=== PATIENT | female | born 1995 | race Caucasian/White ===

== ENCOUNTER 2020-08-12 16:15 | Outpatient (CLI) | payer OTHER ==
[2020-08-27] MEDS ORDERED: HYDROCODON-ACE1 EAC4 PO (20:53)
[2020-08-27] MEDS ORDERED: DOCUSATE SODIU100 MG PO (20:53)
[2020-08-27] MEDS ORDERED: IBUPROFEN800 MG PO (20:53)
== END 2020-08-12 17:50 | disposition home or self-care (01) ==
LOC: GENOP 16:15
DX: O26.93 Pregnancy related conditions, unspecified, third trimester (principal); R10.2 Pelvic and perineal pain; Z3A.36 36 weeks gestation of pregnancy
CPT/HCPCS: 83518; G0463

== ENCOUNTER 2020-08-13 22:40 | Outpatient (CLI) | payer OTHER ==
[2020-08-27] MEDS ORDERED: DOCUSATE SODIU100 MG PO (20:53)
[2020-08-27] MEDS ORDERED: HYDROCODON-ACE1 EAC4 PO (20:53)
[2020-08-27] MEDS ORDERED: IBUPROFEN800 MG PO (20:53)
== END 2020-08-14 01:04 | disposition home or self-care (01) ==
LOC: GENOP 22:40
DX: O62.9 Abnormality of forces of labor, unspecified (principal); Z3A.36 36 weeks gestation of pregnancy
CPT/HCPCS: 59025; 81001

== ENCOUNTER 2020-08-15 17:40 | Outpatient (CLI) | payer OTHER ==
[2020-08-27] MEDS ORDERED: DOCUSATE SODIU100 MG PO (20:53)
[2020-08-27] MEDS ORDERED: IBUPROFEN800 MG PO (20:53)
[2020-08-27] MEDS ORDERED: HYDROCODON-ACE1 EAC4 PO (20:53)
== END 2020-08-15 19:56 | disposition home or self-care (01) ==
LOC: GENOP 17:40
DX: O62.9 Abnormality of forces of labor, unspecified (principal); Z3A.36 36 weeks gestation of pregnancy
CPT/HCPCS: 81001; G0463

== ENCOUNTER 2020-08-27 11:05 | Inpatient (IN) | payer OTHER ==
[~2020-08-27] VITALS: Ht 165.1 cm; Wt 103.9 kg
[2020-08-27] MEDS ORDERED: LEVOTHYROXINE75 MCG PO (14:41)
[2020-08-27] MEDS ORDERED: PRENATABS FA T1 EACH PO (14:44)
[2020-08-27] MEDS ORDERED: MAGNESIUM500 MG PO ×2 (14:44)
[2020-08-27] MEDS ORDERED: PEPCID20 MG PO (14:47)
[2020-08-27] MEDS ORDERED: MONTELUKAST SOD10 MG PO (14:48)
[2020-08-27] MEDS ORDERED: FLUTICASONE-SA1 EAC3 INH (14:48)
[2020-08-27 15:20] LABS: HEMOGLOBIN 14.1 gm/dl (12.3-15.3); RED BLOOD COUNT 4.85 M/UL (4.00-5.10); WHITE BLOOD COUNT 11.3 K/UL (4.5-11.0)
[2020-08-27] MEDS ORDERED: HYDROCODON-ACE1 EAC4 PO (20:53)
[2020-08-27] MEDS ORDERED: DOCUSATE SODIU100 MG PO (20:53)
[2020-08-27] MEDS ORDERED: IBUPROFEN800 MG PO (20:53)
[2020-08-27 23:07] LABS: HEMOGLOBIN 13.3 gm/dl (12.3-15.3)
[2020-08-28 06:33] LABS: HEMOGLOBIN 12.5 gm/dl (12.3-15.3)
== END 2020-08-29 14:59 | disposition home or self-care (01) | DRG 807 ==
LOC: GENOP 11:05 → OB 14:16
PROVIDERS: ADMIT Obstetrics & Gynecology
PROC: 10E0XZZ Delivery of Products of Conception, External Approach (ICD-10-PCS; principal; 2020-08-27)
PROC: 10907ZC Drainage of Amniotic Fluid, Therapeutic from Products of Conception, Via Natural or Artificial Opening (ICD-10-PCS; 2020-08-27)
PROC: 4A1HX4Z Monitoring of Products of Conception, Cardiac Electrical Activity, External Approach (ICD-10-PCS; 2020-08-27)
DX: O99.284 Endocrine, nutritional and metabolic diseases complicating childbirth (principal); Z37.0 Single live birth; E28.2 Polycystic ovarian syndrome; Z3A.38 38 weeks gestation of pregnancy; O70.1 Second degree perineal laceration during delivery; O72.1 Other immediate postpartum hemorrhage; Z20.822 Contact with and (suspected) exposure to COVID-19; Z90.49 Acquired absence of other specified parts of digestive tract; E03.9 Hypothyroidism, unspecified; J45.909 Unspecified asthma, uncomplicated
CPT/HCPCS: 36415; 51702; 81001; 82800; 85014; 85018; 85025; 87635; 90715; J2210; J2405; J2590; J2795; J3010; J7120

== ENCOUNTER 2020-09-02 19:39 | Emergency (ER) | payer OTHER ==
[~2020-09-02] VITALS: Ht 165.1 cm; Wt 98.9 kg
[~2020-09-02 19:39] MED LIST: DOCUSATE SODIU100 MG PO; FLUTICASONE-SA1 EAC3 INH; HYDROCODON-ACE1 EAC4 PO; IBUPROFEN800 MG PO; LEVOTHYROXINE75 MCG PO; MAGNESIUM500 MG PO; MONTELUKAST SOD10 MG PO; PEPCID20 MG PO; PRENATABS FA T1 EACH PO
[2020-09-02 22:01] LABS: HEMOGLOBIN 14.3 gm/dl (12.3-15.3); RED BLOOD COUNT 4.84 M/UL (4.00-5.10); WHITE BLOOD COUNT 9.1 K/UL (4.5-11.0)
[2020-09-02 22:19] LABS: BUN/CREATININE RATIO 14 (0-10)
== END 2020-09-03 03:29 | disposition home or self-care (01) ==
LOC: ER1 19:39
PROVIDERS: Physician Assistant
DX: O72.1 Other immediate postpartum hemorrhage (principal); O99.285 Endocrine, nutritional and metabolic diseases complicating the puerperium; E03.9 Hypothyroidism, unspecified; O99.53 Diseases of the respiratory system complicating the puerperium; J45.909 Unspecified asthma, uncomplicated; Z88.8 Allergy status to other drugs, medicaments and biological substances; Z90.49 Acquired absence of other specified parts of digestive tract; Z79.899 Other long term (current) drug therapy; Z88.0 Allergy status to penicillin
CPT/HCPCS: 80053; 81001; 85025; 96365; 96366; 96367; 96375; 96376; 99284; J1200; J1580; J1885; J2765; J7030; Q9967

== ENCOUNTER → 2021-02-25 | Outpatient (CLI) | payer OTHER | LOC: KOH-I 08:30 | DX: J01.81 Other acute recurrent sinusitis (principal); J32.4 Chronic pansinusitis | CPT/HCPCS: 70486 ==

== ENCOUNTER 2021-04-08 23:08 | Emergency (ER) | payer OTHER | END 2021-04-08 23:48 | disposition home or self-care (01) | LOC: ER1 23:08 | DX: L24.5 Irritant contact dermatitis due to other chemical products (principal) | CPT/HCPCS: 99283 ==

== ENCOUNTER 2021-05-04 13:30 | Emergency (ER) | payer OTHER ==
[2021-05-04 14:36] LABS: HEMOGLOBIN 14.8 gm/dl (12.3-15.3); RED BLOOD COUNT 4.66 M/UL (4.00-5.10); WHITE BLOOD COUNT 6.7 K/UL (4.5-11.0)
[2021-05-04 14:48] LABS: BUN/CREATININE RATIO 16 (0-10)
== END 2021-05-04 16:55 | disposition home or self-care (01) ==
LOC: ER1 13:30
PROVIDERS: Emergency Medicine
DX: R10.30 Lower abdominal pain, unspecified (principal)
CPT/HCPCS: 76830; 80048; 81001; 84703; 85025; 96374; 96375; 99284; J1885; J2405; Q9967

== ENCOUNTER → 2021-06-10 | Outpatient (CLI) | payer OTHER | LOC: RAD 16:09 | DX: M25.551 Pain in right hip (principal) | CPT/HCPCS: 73522 ==

== ENCOUNTER 2021-10-21 14:13 | Emergency (ER) | payer OTHER ==
[2021-10-21] MEDS ORDERED: PEPCID40 MG PO (16:08)
[2021-10-21] MEDS ORDERED: BENADRYL25 MG PO (16:08)
== END 2021-10-21 16:22 | disposition home or self-care (01) ==
LOC: ER1 14:13
DX: L50.1 Idiopathic urticaria (principal); Z88.8 Allergy status to other drugs, medicaments and biological substances
CPT/HCPCS: 96374; 99282; J2930

== ENCOUNTER → 2021-11-27 | Outpatient (CLI) | payer OTHER ==
[~2021-11-27] MED LIST changes: +BENADRYL25 MG PO; +PEPCID40 MG PO
== END ==
LOC: EMI 09:39
DX: G43.909 Migraine, unspecified, not intractable, without status migrainosus (principal)
CPT/HCPCS: 70551

== ENCOUNTER → 2022-02-12 | Outpatient (CLI) | payer OTHER | LOC: KOH-I 01-30 13:30 | DX: E03.9 Hypothyroidism, unspecified (principal); E04.9 Nontoxic goiter, unspecified; R59.0 Localized enlarged lymph nodes | CPT/HCPCS: 76536 ==